=== PATIENT | female | born 1970 | race Caucasian/White ===

== ENCOUNTER 2021-04-18 14:35 | Outpatient (REF) | payer MEDICAID, SELFPAY ==
--- NOTE | ~2021-04-18 | CT_ITS ---
EXAMINATION: CT ABDOMEN AND PELVIS WITH CONTRAST CLINICAL INFORMATION: Right lower quadrant pain COMPARISON: 05/09/2020 TECHNIQUE: Multidetector volumetric images were obtained from the superior aspect of the liver through the pubic symphysis following administration 85 mL of Omnipaque 350 intravenous contrast. Sagittal and coronal reformatted images were obtained on the technologist's workstation. Oral contrast: Yes This CT examination was performed using dose optimization techniques as appropriate, variously including the following: *Automated exposure control *Adjustment of mA and/or kV according to patient size (this includes techniques or standardized protocols for targeted exams where dose is matched to indication/reason for exam; i.e. extremities or head) *Use of iterative reconstruction technique DLP: 323 mGy-cm FINDINGS: LUNG BASES: The visualized lung bases are unremarkable. LIVER, GALLBLADDER, AND BILIARY TREE: Scattered well-circumscribed low density hepatic lesions again seen, unchanged from prior study, nonspecific but statistically most likely representing small cysts; no imaging follow-up recommended. Again seen is low density along the anterior margin of the fissure of the falciform ligament, a typical location for focal fatty infiltration. No suspicious or concerning liver lesion seen. The gallbladder is unremarkable with no evidence of radiopaque gallstones, gallbladder wall thickening, or obvious pericholecystic inflammatory changes. PANCREAS: Unremarkable. SPLEEN: Unremarkable. ADRENAL GLANDS: Unremarkable. KIDNEYS AND URETERS: The kidneys are normal in size, shape, and attenuation. No hydronephrosis, hydroureter, or calculi seen. No perinephric stranding. BLADDER: Unremarkable. GASTROINTESTINAL TRACT: The small and large bowel are unremarkable. The appendix is unremarkable. Stomach and small bowel are nondilated. No right lower quadrant inflammatory changes to suggest appendicitis. Scattered colonic diverticulosis. No evidence of colitis or diverticulitis. ABDOMINAL WALL: Small fat-containing umbilical hernia. LYMPH NODES: Normal. VASCULAR: No aneurysm. PELVIC VISCERA: The uterus and adnexa are unremarkable. OSSEOUS STRUCTURES: Degenerative disc disease with loss of disc height, vacuum disc phenomenon, endplate sclerosis and anterior as well as posterior osteophytosis at L5-S1. CT/CT abdomen pelvis w con IMPRESSION: No acute CT findings. No right lower quadrant inflammatory changes to suggest appendicitis. No etiology for right lower quadrant pain identified.
[2021-04-18] MEDS: iohexoL 350 MG/ML 100 ML INFUS..BTL IV (17:19)
[2021-04-18] MEDS: iohexoL 350 MG/ML 100 ML INFUS..BTL 85 ML IV (18:19)
== END 2021-04-18 14:36 | disposition home or self-care (01) ==
LOC: HO.CT 14:35
PROVIDERS: Visit Provider Family Medicine
DX: R10.31 Right lower quadrant pain (principal)
CPT/HCPCS: 74177; Q9967